=== PATIENT | male | born 1970 | race Caucasian/White ===

== ENCOUNTER 2020-09-04 21:05 | Observation (INO) | payer OTHER ==
--- NOTE | 2020-09-04 21:27 | ED ---
Allergic Reaction HPI - General Stated complaint: Abnormal labs Time Seen by Provider: 09/04/20 21:15 - History of Present Illness Initial Comments: Janusz a 50-year-old male who presents the ER today as a transfer from an outside facility. Patient has a history of anaphylaxis to bee stings. Between 1 and 2 PM he was stung. He states that he walked to his truck to get his EpiPen but wasn't there, he then attempted to walk to his car to get one from his motorcycle that had a syncopal episode. Upon waking he called 911 and EMS arrived, they administered EpiPen him a Benadryl and IV fluids and transported him emergently to [facility]. Upon arrival there patient was quite sleepy from the Benadryl had no complaints. Patient's labs were checked and he was noted to have an elevated troponin. Troponin was 0.11. Patient does not follow with primary care and a regular basis he is uncertain if he could have hypertension hyperlipidemia or diabetes. He does have a father who has coronary artery disease and had bypass in his early 60s. - Related Data Allergies Allergy/AdvReac Type Severity Reaction Status Date / Time amoxicillin Allergy Rash/Hives Verified 09/04/20 21:34 Penicillins Allergy Rash/Hives Verified 09/04/20 21:34 Review of Systems ROS Statement: Those systems with pertinent positive or pertinent negative responses have been documented in the HPI. ROS Other: All systems not noted in ROS Statement are negative. Cardiovascular: Reports: syncope. Denies: chest pain General Exam - General Exam Comments Initial Comments: Physical Exam GENERAL: Patient is well-developed and well-nourished. Patient is nontoxic and well- hydrated and is in no distress. HENT: Normocephalic, Atraumatic. EYES: PERRL, EOMI PULMONARY: Unlabored respirations. No audible rales rhonchi or wheezing was noted. CARDIOVASCULAR: There is a regular rate and rhythm without any murmurs gallops or rubs. ABDOMEN: Soft and nontender with normal bowel sounds. SKIN: Skin is clear with no lesions or rashes and otherwise unremarkable. : Deferred NEUROLOGIC: Patient is alert and oriented x3. Moving all extremities spontaneously MUSCULOSKELETAL: Normal extremities with adequate strength and full range of motion. No lower extremity swelling or edema. No calf tenderness. PSYCHIATRIC: Normal psychiatric evaluation. Course Vital Signs 09/04/20 21:30 Temperature 98 F Pulse Rate 93 Respiratory 18 Rate Blood Pressure 142/80 O2 Sat by Pulse 96 Oximetry Medical Decision Making - Lab Data Result diagrams: 09/04/20 21:44 09/04/20 21:44 Lab Results 09/04/20 09/04/20 09/04/20 Range/Units 21:44 21:44 21:44 WBC 19.4 H (3.8-10.6) k/uL RBC 4.97 (4.30-5.90) m/uL Hgb 16.8 (13.0-17.5) gm/dL Hct 47.7 (39.0-53.0) % MCV 96.1 (80.0-100.0) fL MCH 33.9 (25.0-35.0) pg MCHC 35.3 (31.0-37.0) g/dL RDW 13.0 (11.5-15.5) % Plt Count 269 (150-450) k/uL MPV 7.9 Neutrophils % 95 % Lymphocytes % 3 % Monocytes % 1 % Eosinophils % 1 % Basophils % 0 % Neutrophils # 18.4 H (1.3-7.7) k/uL Lymphocytes # 0.6 L (1.0-4.8) k/uL Monocytes # 0.2 (0-1.0) k/uL Eosinophils # 0.2 (0-0.7) k/uL Basophils # 0.0 (0-0.2) k/uL PT 12.9 H (9.0-12.0) sec INR 1.3 H (<1.2) APTT 52.3 H (22.0-30.0) sec Sodium 137 (137-145) mmol/L Potassium 4.0 (3.5-5.1) mmol/L Chloride 105 (98-107) mmol/L Carbon Dioxide 23 (22-30) mmol/L Anion Gap 9 mmol/L BUN 14 (9-20) mg/dL Creatinine 0.76 (0.66-1.25) mg/dL Est GFR (CKD-EPI)AfAm >90 (>60 ml/min/1.73 sqM) Est GFR (CKD-EPI)NonAf >90 (>60 ml/min/1.73 sqM) Glucose 219 H (74-99) mg/dL Calcium 8.7 (8.4-10.2) mg/dL Magnesium 2.1 (1.6-2.3) mg/dL Total Bilirubin 0.8 (0.2-1.3) mg/dL AST 31 (17-59) U/L ALT 29 (4-49) U/L Alkaline Phosphatase 77 (38-126) U/L Troponin I (0.000-0.034) ng/mL Total Protein 7.2 (6.3-8.2) g/dL Albumin 4.2 (3.5-5.0) g/dL 09/04/20 Range/Units 21:44 WBC (3.8-10.6) k/uL RBC (4.30-5.90) m/uL Hgb (13.0-17.5) gm/dL Hct (39.0-53.0) % MCV (80.0-100.0) fL MCH (25.0-35.0) pg MCHC (31.0-37.0) g/dL RDW (11.5-15.5) % Plt Count (150-450) k/uL MPV Neutrophils % % Lymphocytes % % Monocytes % % Eosinophils % % Basophils % % Neutrophils # (1.3-7.7) k/uL Lymphocytes # (1.0-4.8) k/uL Monocytes # (0-1.0) k/uL Eosinophils # (0-0.7) k/uL Basophils # (0-0.2) k/uL PT (9.0-12.0) sec INR (<1.2) APTT (22.0-30.0) sec Sodium (137-145) mmol/L Potassium (3.5-5.1) mmol/L Chloride (98-107) mmol/L Carbon Dioxide (22-30) mmol/L Anion Gap mmol/L BUN (9-20) mg/dL Creatinine (0.66-1.25) mg/dL Est GFR (CKD-EPI)AfAm (>60 ml/min/1.73 sqM) Est GFR (CKD-EPI)NonAf (>60 ml/min/1.73 sqM) Glucose (74-99) mg/dL Calcium (8.4-10.2) mg/dL Magnesium (1.6-2.3) mg/dL Total Bilirubin (0.2-1.3) mg/dL AST (17-59) U/L ALT (4-49) U/L Alkaline Phosphatase (38-126) U/L Troponin I 0.143 H* (0.000-0.034) ng/mL Total Protein (6.3-8.2) g/dL Albumin (3.5-5.0) g/dL Disposition Clinical Impression: Anaphylaxis, NSTEMI (non-ST elevated myocardial infarction), Hyperglycemia Disposition: ADMITTED IP TO THIS HOSP Condition: Stable Is patient prescribed a controlled substance at d/c from ED?: No Referrals: Haylie Vázquez DO [Primary Care Provider] - 1-2 days
[2020-09-04 21:56] LABS: Basophils % (A) 0 %; Eosinophils # (A) 0.2 k/uL (0-0.7); Eosinophils % (A) 1 %; HCT 47.7 % (39.0-53.0); HGB 16.8 gm/dL (13.0-17.5); Lymphocytes # (A) 0.6 k/uL (1.0-4.8); Lymphocytes % (A) 3 %; MCH 33.9 pg (25.0-35.0); MCHC 35.3 g/dL (31.0-37.0); MCV 96.1 fL (80.0-100.0); Mean Platelet Volume 7.9; Monocytes # (A) 0.2 k/uL (0-1.0); Monocytes % (A) 1 %; Neutrophils # (A) 18.4 k/uL (1.3-7.7); Neutrophils % (A) 95 %; Platelet Count 269 k/uL (150-450); RBC 4.97 m/uL (4.30-5.90); WBC 19.4 k/uL (3.8-10.6)
[2020-09-04] MEDS ORDERED: HEPARIN SODIUM 1,000 UN/ML (10ML VL) IV PRN (21:57)
[2020-09-04] MEDS ORDERED: HEPARIN SOD,PORK IN 0.45% NACL 25,000 UNIT in 0.45% NACL 1 250ML.BAG IV SCH (22:00)
[2020-09-04 22:04] LABS: ALT 29 U/L (4-49); AST 31 U/L (17-59); African American GFR (CKD) >90 (>60 ml/min/1.73 sqM); Albumin 4.2 g/dL (3.5-5.0); Alkaline Phosphatase 77 U/L (38-126); Anion Gap 9 mmol/L; Blood Urea Nitrogen 14 mg/dL (9-20); Calcium 8.7 mg/dL (8.4-10.2); Carbon Dioxide 23 mmol/L (22-30); Chloride 105 mmol/L (98-107); Glucose 219 mg/dL (74-99); Magnesium 2.1 mg/dL (1.6-2.3); Non-African American GFR(CKD) >90 (>60 ml/min/1.73 sqM); Sodium 137 mmol/L (137-145); Total Bilirubin 0.8 mg/dL (0.2-1.3); Total Protein 7.2 g/dL (6.3-8.2)
[2020-09-04] MEDS ORDERED: NITROGLYCERIN SL TABS 0.4 MG TAB SUBLINGUAL PRN (22:20)
[2020-09-04 22:29] LABS: INR 1.3 (<1.2); Partial Thromboplastin Time 52.3 sec (22.0-30.0); Prothrombin Time 12.9 sec (9.0-12.0)
[2020-09-05 04:45] LABS: Basophils % (A) 0 %; Eosinophils % (A) 0 %; HCT 45.1 % (39.0-53.0); HGB 15.3 gm/dL (13.0-17.5); Lymphocytes # (A) 0.9 k/uL (1.0-4.8); Lymphocytes % (A) 5 %; MCH 33.2 pg (25.0-35.0); MCV 97.5 fL (80.0-100.0); Monocytes # (A) 0.4 k/uL (0-1.0); Monocytes % (A) 2 %; Neutrophils # (A) 16.4 k/uL (1.3-7.7); Neutrophils % (A) 92 %; Platelet Count 266 k/uL (150-450); RBC 4.62 m/uL (4.30-5.90); RDW 13.1 % (11.5-15.5); WBC 17.8 k/uL (3.8-10.6)
[2020-09-05 04:51] LABS: INR 1.1 (<1.2); Partial Thromboplastin Time 27.2 sec (22.0-30.0); Prothrombin Time 11.7 sec (9.0-12.0)
[2020-09-05 06:13] LABS: Glucose,Whole Blood 150 mg/dL (75-99)
[2020-09-05] MEDS: INSULIN ASPART (NovoLOG) 100 UNIT/ML VIAL SQ SCH ×4 (06:14→22:48)
[2020-09-05] MEDS ORDERED: ASPIRIN 325 MG TAB PO SCH (09:00)
[2020-09-05 10:16] LABS: Chol/HDL Ratio 4.45
[2020-09-05 11:36] LABS: Glucose,Whole Blood 123 mg/dL (75-99)
[2020-09-05] MEDS ORDERED: INSULIN DETEMIR (LEVEMIR) 100 UNIT/ML SYR SQ SCH (11:45)
--- NOTE | 2020-09-05 12:05 | CONS ---
CONSULTATION ATTENDING PHYSICIAN: Dr. Vázquez. HISTORY OF PRESENT ILLNESS: Mr. Ruiz is a 50-year-old male with no prior documented coronary artery disease. Yesterday he got stung by 3 bees. He could not find his EpiPen and when he tried to walk to get one he passed out and came to then passed out again and then when he came to, he was able to call EMS and he received an EpiPen, Benadryl and IV fluids. He was transferred to [facility] and subsequently to [facility]. His troponin was mildly elevated. The patient had a prior allergic reaction many years ago. He is feeling well this morning. He is not quite sure how long he was out. He denies any associated chest discomfort. No palpitation. He is breathing stable. He is active physically without difficulty. He denies any prior history of cardiac disease. No PND, orthopnea. No peripheral edema. No syncope. He has a family history of premature coronary artery disease. MEDICATION: He takes no medication at home. SOCIAL HISTORY: He drinks social alcohol intake, 2 cups of coffee, nonsmoker. REVIEW OF SYSTEMS: RESPIRATORY SYSTEM: No documented history of asthma, emphysema, . GI SYSTEM: No recent GI bleeding. No peptic ulcer disease. SYSTEM: No dysuria or hematuria. NERVOUS SYSTEM: No history of stroke or seizure. PHYSICAL EXAMINATION: GENERAL: A 50-year-old male, alert, oriented, no apparent distress. VITAL SIGNS: Blood pressure 144/70 with a heart rate in the 90s. HEAD: Normocephalic. Eyes sclerae anicteric. NECK: Good carotid upstroke. No bruit, no jugular venous distention. LUNGS: Clear to auscultation. HEART: Regular rate and rhythm S1, S2. No S3. No S4. No murmur or rub. ABDOMEN: Soft and nontender. Positive bowel sounds. No organomegaly. EXTREMITIES: No edema. Intact pulses. LAB DATA: Lab data revealed a troponin of 0.014, 0.101 and 0.061. His cholesterol is 196, LDL of 131, BUN and creatinine 14 and 0.76. Hemoglobin of 15.3. His EKG revealed a sinus mechanism, normal axis and intervals, poor R progression. IMPRESSION: 1. Syncopal episode after an allergic reaction to being stung by a bee. 2. Mild troponin elevation most likely representing a reaction to the anaphylactic shock that occurred. 3. Hyperlipidemia. RECOMMENDATION: From the cardiac standpoint, I will stop the heparin. I will obtain echocardiogram with Doppler and stress echo tomorrow. If there is no evidence of abnormality then no further cardiac workup will be needed. Thank you for this consult. We will follow with you. ONEYDA / EVER: [id number] /
[2020-09-05] MEDS: MULTIVITAMINS, THERA 1 EACH TAB PO SCH (12:22)
[2020-09-05 13:19] LABS: Hemoglobin A1C 5.7 % (4.0-6.0)
[2020-09-05 16:46] LABS: Glucose,Whole Blood 129 mg/dL (75-99)
--- NOTE | 2020-09-05 20:31 | P.HPIM ---
History of Present Illness H&P Date: 09/05/20 Chief Complaint: Syncope History of presenting complaint: This is a pleasant 50-year-old patient who follows with Dr.L Vázquez. Patient normally knee health. He is at a prior episode of bee sting ALLERGY and does keep an EpiPen with him. Yesterday he was trimming his hatches when he was bitten by at least 3 bees on the arms and the legs. On 1 PM. Patient rushed to his truck to get the EpiPen that underlies it's probably in his barn. On the date of the bathroom he nearly passed out 3 times. He did manage to call 911. 911 did get him the EpiPen. Patient was very short of breath and trouble breathing. A lot of saliva and was profusely sweating. No chest pain. This morning patient's symptoms are resolved. Patient did have a troponin leak. Patient always rather quite active. No prior cardiac history. Review of systems: GEN.: None EYES: None HEENT: None NECK: None RESPIRATORY: None CARDIOVASCULAR: As above GASTROINTESTINAL: None GENITOURINARY: None MUSCULOSKELETAL: None LYMPHATICS: None HEMATOLOGICAL: None PSYCHIATRY: None NEUROLOGICAL: No focal symptoms Past medical history to include: Epilepsy at age of 7. Lazy eyeI with surgery. 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 18-year-old son lives with him. Does not smoke. Al cohol occasionally. Denies use of any recreational drugs. Family history: CAD Physical examination: VITAL SIGNS: 98.3, 90, 18, 144/73, 94% room air GENERAL: BMI 32.8, sitting up, comfortable. EYES: Pupils equal. Conjunctiva normal. HEENT: External appearance of nose and ears normal, oral cavity grossly normal. NECK: JVD not raised; masses not palpable. HEART: First and second heart sounds are normal; no edema. LUNGS: Respiratory rate normal; clear to auscultation. ABDOMEN: Soft, nontender, liver spleen not palpable, no masses palpable. PSYCH: Alert and oriented x3; mood and affect normal. NEUROLOGICAL: Cranial nerves grossly intact; no facial asymmetry, power and sensation grossly intact. LYMPHATICS: No lymph nodes palpable in the axilla and neck INVESTIGATIONS, reviewed in the clinical context: White count 7.8 hemoglobin 15.3 platelets 266 Troponin I 0.061 LDL 131 Accu-Cheks 150 Assessment and plan: -Syncope from acute ALLERGIC reaction from Bee sting. EpiPen was used -Troponin leak, likely from hemodynamic mismatch. Patient did not have any cardiac symptoms as such. Has a good exercise tolerance at baseline. -Hyperglycemia. Episodic. Doubt diabetes type 2. Care was discussed with the patient. Cardiology was consulted. 2-D echocardiogram was ordered. Patient has no cardiac symptoms. IV heparin discontinued. Patient be placed in observation Past Medical History Past Medical History: Eye Disorder, Seizure Disorder Additional Past Medical History / Comment(s): epilepsy until age of 7, lazy eye with surgery until 5th grade History of Any Multi-Drug Resistant Organisms: None Reported Past Surgical History: Adenoidectomy Additional Past Surgical History / Comment(s): eye surgeries Past Anesthesia/Blood Transfusion Reactions: No Reported Reaction Past Psychological History: No Psychological Hx Reported Smoking Status: Never smoker Past Alcohol Use History: Occasional Past Drug Use History: None Reported - Past Family History Father Additional Family Medical History / Comment(s): CABG 1964 Brother(s) Family Medical History: Cancer Medications and Allergies Home Medications Medication Instructions Recorded Confirmed Type Multivitamins, Thera [Multivitamin 1 tab PO DAILY 09/05/20 09/05/20 History (formulary)] Allergies Allergy/AdvReac Type Severity Reaction Status Date / Time amoxicillin Allergy Rash/Hives Verified 09/05/20 09:11 Penicillins Allergy Rash/Hives Verified 09/05/20 09:11 bee venom protein (honey bee) AdvReac Anaphylaxis Verified 09/05/20 09:11 Physical Exam Vitals: Vital Signs Temp Pulse Pulse Resp BP BP Pulse Ox 09/05/20 08:00 98.3 F 90 18 144/73 94 L 09/05/20 04:00 96 17 117/70 93 L 09/05/20 01:01 101 H 17 09/04/20 23:18 98.4 F 101 H 17 141/86 95 09/04/20 23:00 87 16 95 09/04/20 22:20 95 09/04/20 21:30 98 F 93 18 142/80 96 Intake and Output 09/04/20 09/05/20 09/05/20 22:59 06:59 14:59 Intake Total 63.2 Balance 63.2 Intake: Intake, IV Titration 63.2 Amount Heparin Sod,Pork in 0.45% 63.2 NaCl 25,000 unit In 0.45 % NaCl 1 250ml.bag @ 10 UNITS/KG/HR 9.979 mls/hr IV .Q24H [facility] Rx#: [id number] Other: Voiding Method Toilet # Voids 2 Weight 99.79 kg 100.6 kg Results CBC & Chem 7: 09/05/20 04:18 09/04/20 21:44 Labs: Abnormal Lab Results - Last 24 Hours (Table) 09/04/20 09/04/20 09/04/20 Range/Units 21:44 21:44 21:44 WBC 19.4 H (3.8-10.6) k/uL Neutrophils # 18.4 H (1.3-7.7) k/uL Lymphocytes # 0.6 L (1.0-4.8) k/uL PT 12.9 H (9.0-12.0) sec INR 1.3 H (<1.2) APTT 52.3 H (22.0-30.0) sec Glucose 219 H (74-99) mg/dL POC Glucose (mg/dL) (75-99) mg/dL Troponin I (0.000-0.034) ng/mL 09/04/20 09/04/20 09/05/20 Range/Units 21:44 23:49 04:18 WBC 17.8 H (3.8-10.6) k/uL Neutrophils # 16.4 H (1.3-7.7) k/uL Lymphocytes # 0.9 L (1.0-4.8) k/uL PT (9.0-12.0) sec INR (<1.2) APTT (22.0-30.0) sec Glucose (74-99) mg/dL POC Glucose (mg/dL) (75-99) mg/dL Troponin I 0.143 H* 0.101 H* (0.000-0.034) ng/mL 09/05/20 09/05/20 Range/Units 04:18 06:05 WBC (3.8-10.6) k/uL Neutrophils # (1.3-7.7) k/uL Lymphocytes # (1.0-4.8) k/uL PT (9.0-12.0) sec INR (<1.2) APTT (22.0-30.0) sec Glucose (74-99) mg/dL POC Glucose (mg/dL) 150 H (75-99) mg/dL Troponin I 0.061 H* (0.000-0.034) ng/mL Thrombosis Risk Factor Assmnt - Choose All That Apply Each Factor Represents 1 point: Obesity (BMI >25) Thrombosis Risk Factor Assessment Total Risk Factor Score: 1 Thrombosis Risk Factor Assessment Level: Low Risk
[2020-09-05 20:52] LABS: Glucose,Whole Blood 127 mg/dL (75-99)
[2020-09-06 04:47] VITALS: RESP 16
[2020-09-06 06:14] LABS: Glucose,Whole Blood 130 mg/dL (75-99)
[2020-09-06] MEDS: INSULIN ASPART (NovoLOG) 100 UNIT/ML VIAL SQ SCH ×2 (06:27→12:08)
[2020-09-06 07:46] LABS: Basophils % (A) 0 %; Eosinophils # (A) 0.2 k/uL (0-0.7); Eosinophils % (A) 2 %; HCT 45.3 % (39.0-53.0); HGB 15.7 gm/dL (13.0-17.5); Lymphocytes # (A) 1.9 k/uL (1.0-4.8); Lymphocytes % (A) 17 %; MCH 33.9 pg (25.0-35.0); MCHC 34.6 g/dL (31.0-37.0); MCV 97.9 fL (80.0-100.0); Mean Platelet Volume 7.9; Monocytes # (A) 0.6 k/uL (0-1.0); Monocytes % (A) 6 %; Neutrophils # (A) 8.3 k/uL (1.3-7.7); Neutrophils % (A) 75 %; Platelet Count 240 k/uL (150-450); RBC 4.62 m/uL (4.30-5.90); RDW 13.1 % (11.5-15.5)
[2020-09-06 08:24] VITALS: TEMP 98.1
[2020-09-06] MEDS: MULTIVITAMINS, THERA 1 EACH TAB PO SCH (08:25)
[2020-09-06] MEDS ORDERED: ASPIRIN 81 MG PO SCH (09:00)
[2020-09-06 11:52] LABS: Glucose,Whole Blood 88 mg/dL (75-99)
--- NOTE | 2020-09-06 12:04 | ECHOS ---
STRESS ECHOCARDIOGRAM LUMASON: Vial INDICATIONS: Chest pain MEDICATIONS: BASELINE HEART RATE: 82 BASELINE BLOOD PRESSURE: 134/70 MAXIMUM HEART RATE: 164 MAXIMUM BLOOD PRESSURE: 195/94 85% MPHR: 146 100% MPHR: 172 METS: 11.5 MAXIMUM STAGE REACHED: 4 TOTAL EXERCISE TIME: 10:00 DATE OF SERVICE: September 04, 2020 INDICATION: Chest pain. STRESS DATA: Heart rate 82, pressure is 134/70 mmHg. Baseline EKG showed sinus mechanism. The patient exercised on the treadmill according to Chaz protocol for a total of 10 minutes and achieved 11.45 METS. Max heart rate was 164, which is about 95% of maximum predicted heart rate and maximum blood pressure was 195/94 mmHg. Clinically, the patient did not have any symptoms of chest pain or chest discomfort. The EKG did not show any significant ST or T-wave abnormalities concerning for ischemia. ANALYSIS: On echocardiogram images from parasternal long axis view, parasternal short axis view, apical 4 chamber and apical 2 chambers were obtained as the baseline images, at the peak of the heart rate as well as on recovery and the echocardiogram images showed good augmentation in the left ventricular systolic function without any evidence of wall motion abnormalities concerning for ischemia. CONCLUSION: 1. Excellent exercise tolerance. 2. Normal EKG in response to exercise. 3. Normal echocardiogram in response to exercise. 4. Essentially normal stress echocardiogram for the patient. MMODL / IJN: [id number] /
[2020-09-06 12:37] VITALS: BP 134/82; PULSE 96
--- NOTE | 2020-09-06 13:50 | P.PN ---
Subjective This is a 50-year-old male with no prior history of coronary artery disease. He presented to the emergency department after being stung by 3 be. He could not find his EpiPen and when he tried to walk to get one he passed out, came to the passed out again. He was called EMS. He was seen and EpiPen, Benadryl IV fluids. He was severely short of breath after he woke up. He was transferred to [facility] and subsequently to [facility] due to his troponin being mildly elevated. EKG revealed sinus mechanism, no acute ischemia noted, poor R wave progression. This morning patient is feeling well. Denies any chest pain, shortness of breath, lightheadedness, dizziness, palpitations. Blood pressure 134/82, heart rate 96, afebrile, maintaining oxygen saturations on room air. Laboratory data reviewed, WBC 11, hemoglobin 15.7, platelets 240, troponin trend 0.14, 0.10, 0.06. Patient is scheduled for a stress echo test today. GENERAL: Well-appearing, well-nourished and in no acute distress. NECK: Supple without JVD or thyromegaly. LUNGS: Breath sounds clear to auscultation bilaterally. Respiration equal and unlabored. No wheezes, rales or rhonchi. HEART: Regular rate and rhythm without murmurs, rubs or gallops. S1 and S2 heard. EXTREMITIES: Normal range of motion, no edema. No clubbing or cyanosis. Peripheral pulses intact. ASSESEMENT Syncopal episode after ALLERGIC reaction being stung by bees Mild troponin elevation most likely related to reaction to anaphylactic shock PLAN Echocardiogram and stress echo test ordered today. If there is no evidence of abnormality no further cardiac workup is indicated. Patient can be discharged from cardiology perspective. Nurse Practitioner note has been reviewed, I agree with a documented findings and plan of care. Patient was seen and examined. Objective - Vital Signs Vital signs: Vital Signs Temp 98.1 F 09/06/20 08:00 Pulse 96 09/06/20 12:00 Resp 16 09/06/20 12:00 BP 134/82 09/06/20 12:00 Pulse Ox 96 09/06/20 12:00 Intake & Output 09/05/20 09/06/20 09/06/20 18:59 06:59 18:59 Intake Total 480 383.568 480 Balance 480 383.568 480 Weight 99 kg 99 kg Intake: Intake, IV Titration 183.568 Amount Heparin Sod,Pork in 0.45% 183.568 NaCl 25,000 unit In 0.45 % NaCl 1 250ml.bag @ 10 UNITS/KG/HR 9.979 mls/hr IV .Q24H [facility] Rx#: [id number] Oral 480 200 480 Other: Voiding Method Toilet Toilet # Voids 2 2 1 - Labs CBC & Chem 7: 09/06/20 07:24 09/04/20 21:44 Labs: Abnormal Lab Results - Last 24 Hours (Table) 09/05/20 09/05/20 09/06/20 Range/Units 16:45 20:48 06:05 WBC (3.8-10.6) k/uL Neutrophils # (1.3-7.7) k/uL POC Glucose (mg/dL) 129 H 127 H 130 H (75-99) mg/dL 09/06/20 Range/Units 07:24 WBC 11.0 H (3.8-10.6) k/uL Neutrophils # 8.3 H (1.3-7.7) k/uL POC Glucose (mg/dL) (75-99) mg/dL
--- NOTE | 2020-09-06 15:42 | ECHOF ---
Referral Reason:syncope MEASUREMENTS -------- HEIGHT: 175.3 cm WEIGHT: 98.9 kg BP: 130/86 RVIDd: 3.3 cm (< 3.3) IVSd: 1.1 cm (0.6 - 1.1) LVIDd: 4.3 cm (3.9 - 5.3) LVPWd: 1.0 cm (0.6 - 1.1) IVSs: 1.6 cm LVIDs: 2.9 cm LVPWs: 1.7 cm LA Diam: 3.4 cm (2.7 - 3.8) Ao Diam: 3.2 cm (2.0 - 3.7) AV Cusp: 2.2 cm (1.5 - 2.6) MV EXCURSION: 14.881 mm (> 18.000) MV EF SLOPE: 63 mm/s (70 - 150) EPSS: 0.4 cm MV E Abdias: 0.76 m/s MV DecT: 310 ms MV A Abdias: 0.67 m/s MV E/A Ratio: 1.12 RAP: 5.00 mmHg RVSP: 25.88 mmHg FINDINGS -------- Sinus rhythm. This was a technically good study. The left ventricular size is normal. There is borderline concentric left ventricular hypertrophy. Overall left ventricular systolic function is normal with, an EF between 65 - 70 %. The right ventricle is mildly enlarged. The left atrium is normal in size. The right atrium is normal in size. Interatrial and interventricular septum intact. The aortic valve is trileaflet, and appears structurally normal. No aortic stenosis or regurgitation. The mitral valve is normal. Mild tricuspid regurgitation present. Right ventricular systolic pressure is normal at < 35 mmHg. Trace/mild (physiologic) pulmonic regurgitation. The aortic root size is normal. Normal inferior vena cava with normal inspiratory collapse consistent with estimated right atrial pre ssure of 5 mmHg. There is no pericardial effusion. CONCLUSIONS -------- 1. The left ventricular size is normal. 2. There is borderline concentric left ventricular hypertrophy. 3. Overall left ventricular systolic function is normal with, an EF between 65 - 70 %. 4. The right ventricle is mildly enlarged. 5. The aortic valve is trileaflet, and appears structurally normal. No aortic stenosis or regurgitati on. 6. Mild tricuspid regurgitation present. 7. Trace/mild (physiologic) pulmonic regurgitation. 8. There is no pericardial effusion. RELAY DISPATCHER: Jackie Camarena RDCS
--- NOTE | 2020-09-06 23:34 | P.DS ---
Providers Date of admission: 09/04/20 22:20 Attending physician: Mike Villalobos Consults: 09/04/20 22:20 Consult Physician Urgent Consulting Provider: Scot Montalvo Consult Reason/Comments: NSTEMI Do you want consulting provider notified?: Already Contacted Primary care physician: Haylie Vázquez [facility] Course: Diagnoses: -Syncope from acute ALLERGIC reaction from Bee sting. EpiPen was used -Troponin leak, likely from hemodynamic mismatch. Patient had negative stress test and cleared by other sports official for discharge Hospital course: This is a pleasant 50-year-old patient who follows with Dr.L Vázquez. Patient normally knee health. He is at a prior episode of bee sting ALLERGY and does keep an EpiPen with him. Yesterday he was trimming his hatches when he was bitten by at least 3 bees on the arms and the legs. Patient rushed to his truck to get the EpiPen but he couldn't get it, he nearly passed out 3 times. He did manage to call 911. 911 did get him the EpiPen. Patient was very short of breath and trouble breathing. A lot of saliva and was profusely sweating. No chest pain. Patient had leukocytosis of 19k secondary to stress test came down to 11. The is back to baseline and today he is asymptomatic and eager to go home [employer] Time Sales Supervisor evaluated the patient and he underwent stress test which came back negative and other sports official cleared him for discharge Problems and management plan were discussed with the patient and he verbalized understanding and acceptance Patient was found stable and can be discharged home however he needs follow-up as an outpatient. Patient was instructed to follow up with PCP Dr. Stallings within one week and patient agrees also patient was instructed to follow up with his other sports official Dr. Villafana in 2 weeks and he agrees to call and make appointment EpiPen is a provided for him upon discharge 2 Physical exam Gen: patient is a AAOx3, no distress CVS: S1-S2, RRR, no murmur Lungs: B/L CTA, no wheezing Abdomen: soft, no distention, no tenderness, positive bowel sounds Extremity: no leg edema or induration Time spent more than 35 minutes Patient Condition at Discharge: Stable Plan - Discharge Summary Discharge Rx Participant: Yes New Discharge Prescriptions: New EPINEPHrine (Auto Inject) [Epipen] 0.3 mg IM ONCE PRN #2 pen PRN Reason: Anaphylaxis Continue Multivitamins, Thera [Multivitamin (formulary)] 1 tab PO DAILY Discharge Medication List Multivitamins, Thera [Multivitamin (formulary)] 1 tab PO DAILY 09/05/20 [History] EPINEPHrine (Auto Inject) [Epipen] 0.3 mg IM ONCE PRN #2 pen 09/06/20 [Rx] Follow up Appointment(s)/Referral(s): Erika Villafana MD [STAFF PHYSICIAN] - 2 Weeks Haylie Vázquez DO [Primary Care Provider] - 1-2 days Patient Instructions/Handouts: Heart Attack (DC), Anaphylaxis (DC) Activity/Diet/Wound Care/Special Instructions: heart healthy diet activity is limited till you see your doctor Discharge Disposition: HOME SELF-CARE
== END 2020-09-06 15:05 | disposition home or self-care (01) ==
LOC: EC 21:05 → INTOOBSV 22:20 → 3SCARD 22:20 → UNDODISIN 09-06 15:05
PROVIDERS: ADMIT Hospitalist; ATTEND Hospitalist
DX: T63.441A Toxic effect of venom of bees, accidental (unintentional), initial encounter (principal); T78.2XXA Anaphylactic shock, unspecified, initial encounter; R77.8 Other specified abnormalities of plasma proteins; R61 Generalized hyperhidrosis; D72.829 Elevated white blood cell count, unspecified; E78.5 Hyperlipidemia, unspecified; R73.9 Hyperglycemia, unspecified; E66.9 Obesity, unspecified; Z68.32 Body mass index [BMI] 32.0-32.9, adult; Z86.69 Personal history of other diseases of the nervous system and sense organs; Z91.030 Bee allergy status; Z87.892 Personal history of anaphylaxis; Z88.0 Allergy status to penicillin; Z82.49 Family history of ischemic heart disease and other diseases of the circulatory system; Z80.9 Family history of malignant neoplasm, unspecified
CPT/HCPCS: 96366; 96365; 99285; 36415; 93005; 93306; 93351; 80061; 80053; 83735; 84484 ×2; 85025 ×3; 85610 ×2; 85730 ×2; 83036; G0378 ×3; J1644